=== PATIENT | female | born 1945 ===

== ENCOUNTER 2022-05-16 09:37 | Emergency (ER) | payer MEDICARE, BC ==
[2022-05-16] MEDS ORDERED: Sodium Chloride 0.9% 10 ML Syringe FLUSH PRN (09:53)
[2022-05-16] MEDS ORDERED: HYDROmorphone 0.5 MG/0.5 ML Syringe IVPUSH ONE (10:04)
[2022-05-16] MEDS ORDERED: Ondansetron 4 MG/2 ML SDV IV ONE (10:04)
[2022-05-16 10:18] LABS: ANION GAP 8.3 mEq/L (7-13); CHLORIDE,CL 102 mmol/L (98-107); SODIUM,NA 140 mmol/L (136-145)
[2022-05-16 10:19] LABS: ESTIMATED GFR 32 mL/min (>=60)
== END 2022-05-16 13:10 | disposition home or self-care (01) ==
LOC: DL.ED 09:37
DX: K80.70 Calculus of gallbladder and bile duct without cholecystitis without obstruction (principal); Z91.040 Latex allergy status
CPT/HCPCS: 36415; 74176; 80048; 80076; 81001; 82150; 83605; 83690; 85025; 87086; 96374; 96375; 99284; J1170; J2405